=== PATIENT | female | born 1990 | race Caucasian/White ===

== ENCOUNTER 2025-04-29 00:49 | Inpatient (IN) | payer BC, SELFPAY ==
[2025-04-29] VITALS (157 sets, daily range): BP systolic 88–169; BP diastolic 39–119; PULSE 65–298; RESP 16–18; TEMP 36.6–37; O2SAT 94–100; BMI 36.3
[2025-04-29 01:24] LABS: Hematocrit 31.6 % (37.0-47.0); Hemoglobin 10.3 g/dL (12.0-15.0); Immature Granulocyte Percent A 1.0 % (0-0.5); Lymphocytes Absolute Auto 4.62 K/mm3 (0.9-3.2); Mean Corpuscular HGB Conc 32.6 g/dl (32-36); Mean Corpuscular Hemoglobin 27.2 pg (26-34); Mean Corpuscular Volume 83.6 fl (80-100); Nucleated Red Blood Cells Absolute Auto 0.000 K/mm3 (0.0-0.012); Nucleated Red Blood Cells Perc 0.0 % (0.0-0.2); Platelet Count Result 249 k/mm3 (150-375); Red Blood Count 3.78 M/mm3 (4.2-5.4); White Blood Count 15.6 K/mm3 (4.5-10.0)
[2025-04-29] MEDS: LACTATED RINGERS 1,000 ML 125 ML IV CONT ×3 (01:24→06:49)
[2025-04-29] MEDS: fentaNYL CITRATE INJ (*CRX) 100 MCG/2 ML VIAL 50 MCG IV PUSH (01:43)
[2025-04-29 02:02] LABS: Syphilis IgG/IgM Antibody Non-Reactive (Nonreactive)
--- NOTE | 2025-04-29 02:02 | WPDANESEPP ---
Anes - Eval Pre Procedure Procedure: Labor Epidural Date/Time: 04/29/25 02:02 Surgeon: Ana Preop Diagnosis: Labor Pain Pre Op Diagnosis: contractions, leaking Patient Data Age: 34 Gender: F Height: Weight: Last Vital Signs Pulse Ox 99 04/29/25 01:05 Allergies Allergy/AdvReac Type Severity Reaction Status Date / Time cymbolta Allergy Severe Anaphylaxis Uncoded 04/21/25 15:44 Home Medications ?Medication ?Instructions ?Recorded ?Confirmed ?Type Lomotrigine 04/21/25 History Laboratory Tests 04/29/25 01:12 WBC 15.6 H K/mm3 (4.5-10.0) RBC 3.78 L M/mm3 (4.2-5.4) Hgb 10.3 L g/dL (12.0-15.0) Hct 31.6 L % (37.0-47.0) MCV 83.6 fl (80-100) MCH 27.2 pg (26-34) MCHC 32.6 g/dl (32-36) RDW 14.7 H % (11.5-14.5) Plt Count 249 k/mm3 (150-375) MPV 11.9 H fl (7.4-10.4) Immature Gran % (Auto) 1.0 H % (0-0.5) Neut % (Auto) 62.6 % (45.5-73.1) Lymph % (Auto) 29.7 % (18.3-44.2) Rooks % (Auto) 6.1 % (2.6-8.5) Eos % (Auto) 0.4 % (0-4.4) Baso % (Auto) 0.2 % (0.2-1.2) Lymph # (Auto) 4.62 H K/mm3 (0.9-3.2) Rooks # (Auto) 1.0 H K/mm3 (0.1-0.6) Eos # (Auto) 0.1 K/mm3 (0-0.3) Baso # (Auto) 0.0 K/mm3 (0.0-0.1) Abs Immat Gran (auto) 0.16 H K/mm3 (0.00-0.031) Absolute Neuts (auto) 9.7 H K/mm3 (1.3-6.7) Absolute Nucleated RBC 0.000 K/mm3 (0.0-0.012) Nucleated RBC % 0.0 % (0.0-0.2) Syphilis IgG/IgM Ab Non-reactive (Nonreactive) Blood Type A Positive Antibody Screen Pending Patient hx anesthesia problems: none Family hx anesthesia problems: none Results Review: All pre-operative results and documents have been reviewed as part of the pre-operative evaluation. [facility] Family History Family History (Updated 04/21/25 @ 15:32 by Angeline Ochoa RN) Mother Addisons disease Grandparent Bone cancer Father Malignant neoplasm of prostate Social History Social History Substance use: never Spiritual care concerns: No Exam Day of Procedure 04/29/25 02:02 Patient weight: normal Heart: regular rate and rhythm Lungs: normal air movement Airway: Mallampati scale class II Neurological: alert and oriented
--- NOTE | 2025-04-29 03:25 | LDADM ---
This patient, Cici Pa, was admitted to Labor/Delivery/Recovery 107 on 04/29/25 at 00:49. Plans for labor, pain management and were discussed with patient. Patient/family oriented to hospital policies and general routines including ID bracelet, bed and alarms, visiting hours, pain management, procedures, bathroom and other care routines, personal items, smoking policy, room service/diet and guest tray routines, security routines, and visiting hours. Patient/Family are encouraged to report perceived risks to care and to ask questions if they do not understand what they are told or what they should do. See OBIX for further documentation.
[2025-04-29] MEDS: CALCIUM CARBONATE (TUMS) 500 MG (200 MG ELEMENTAL) (06:43)
--- NOTE | 2025-04-29 06:57 | PM.IMHP2 ---
H&P: HPI History of Present Illness Date/Time: 04/29/25 06:57 Chief Complaint: Labor at term Narrative: This is a 34-year-old 1 para 0 whose last menstrual period is unknown but EDC is 05/23/2025 confirmed by 10 week ultrasound presents at 37 weeks gestation with spontaneous rupture membranes prior to admission she does take lamotrigine has otherwise been uncomplicated she passed her diabetic test and was negative for group B strep Review of Systems Review of Systems: All systems reviewed & are unremarkable except as noted in HPI and below PMFSH Family History Family History Mother Addisons disease Grandparent Bone cancer Father Malignant neoplasm of prostate Social History Social History Smoking status: Former smoker Tobacco type: cigarettes Second hand tobacco smoke exposure: No Smoking end date: 11/03/23 Substance use: never Lack of Transportation: No Lack of Food: Never True Current Housing: I Have Housing Concerned About Future Housing: No Difficulty Paying Gas/Electric Bills: No Difficulty Paying for Meds: No Currently Unemployed: No Education: Trade/Vocational Certificate Difficulty w/ Childcare or Family Care: No Spiritual care concerns: No Meds Home Medications and Allergies Home Medications ?Medication ?Instructions ?Recorded ?Confirmed ?Type Lomotrigine 04/21/25 History Allergies Allergy/AdvReac Type Severity Reaction Status Date / Time cymbolta Allergy Severe Anaphylaxis Uncoded 04/21/25 15:44 Vital Signs Vital Signs - 24 hr 04/29/25 01:05 04/29/25 02:03 04/29/25 02:08 Temperature Pulse Rate Blood Pressure Pulse Oximetry 99 99 100 Oxygen Delivery 04/29/25 02:09 04/29/25 02:12 04/29/25 02:13 Temperature Pulse Rate 72 81 Blood Pressure 140/81 166/119 H Pulse Oximetry 100 Oxygen Delivery 04/29/25 02:18 04/29/25 02:23 04/29/25 02:28 Temperature Pulse Rate Blood Pressure Pulse Oximetry 99 100 100 Oxygen Delivery 04/29/25 02:29 04/29/25 02:31 04/29/25 02:33 Temperature Pulse Rate 69 75 91 Blood Pressure 147/83 H 164/82 H 140/69 Pulse Oximetry 99 Oxygen Delivery 04/29/25 02:35 04/29/25 02:36 04/29/25 02:38 Temperature Pulse Rate 93 90 Blood Pressure 154/70 H 144/69 H Pulse Oximetry 100 Oxygen Delivery 04/29/25 02:39 04/29/25 02:41 04/29/25 02:43 Temperature Pulse Rate 89 91 Blood Pressure 141/63 H 122/81 Pulse Oximetry 99 Oxygen Delivery 04/29/25 02:44 04/29/25 02:46 04/29/25 02:48 Temperature Pulse Rate 153 H 74 Blood Pressure 133/68 127/58 L Pulse Oximetry 99 Oxygen Delivery 04/29/25 02:49 04/29/25 02:51 04/29/25 02:53 Temperature Pulse Rate 88 70 Blood Pressure 111/39 L 126/56 L Pulse Oximetry 95 Oxygen Delivery 04/29/25 02:54 04/29/25 02:57 04/29/25 02:58 Temperature Pulse Rate 298 H 74 Blood Pressure 115/45 L 126/50 L Pulse Oximetry 96 Oxygen Delivery 04/29/25 02:59 04/29/25 03:01 04/29/25 03:03 Temperature Pulse Rate 73 74 Blood Pressure 107/46 L 119/56 L Pulse Oximetry 99 Oxygen Delivery 04/29/25 03:04 04/29/25 03:06 04/29/25 03:09 Temperature Pulse Rate 73 85 78 Blood Pressure 119/55 L 110/42 L 117/57 L Pulse Oximetry Oxygen Delivery 04/29/25 03:11 04/29/25 03:14 04/29/25 03:16 Temperature Pulse Rate 87 85 88 Blood Pressure 111/76 103/52 L 88/47 L Pulse Oximetry Oxygen Delivery 04/29/25 03:20 04/29/25 03:21 04/29/25 03:24 Temperature Pulse Rate 82 76 79 Blood Pressure 103/40 L 110/46 L 104/53 L Pulse Oximetry Oxygen Delivery 04/29/25 03:25 04/29/25 03:26 04/29/25 03:29 Temperature Pulse Rate 82 91 Blood Pressure 101/49 L 108/48 L Pulse Oximetry Oxygen Delivery Room Air 04/29/25 03:31 04/29/25 03:46 04/29/25 03:51 Temperature Pulse Rate 84 86 Blood Pressure 102/59 L 116/56 L Pulse Oximetry 100 100 Oxygen Delivery 04/29/25 03:56 04/29/25 04:00 04/29/25 04:01 Temperature 97.9 F Pulse Rate Blood Pressure Pulse Oximetry 99 100 Oxygen Delivery 04/29/25 04:02 04/29/25 04:06 04/29/25 04:11 Temperature Pulse Rate 88 Blood Pressure 101/66 Pulse Oximetry 100 99 Oxygen Delivery 04/29/25 04:16 04/29/25 04:21 04/29/25 04:26 Temperature Pulse Rate 84 Blood Pressure 123/63 Pulse Oximetry 99 99 99 Oxygen Delivery 04/29/25 04:31 04/29/25 04:46 04/29/25 05:01 Temperature Pulse Rate 89 87 86 Blood Pressure 132/68 136/71 149/77 H Pulse Oximetry 99 Oxygen Delivery 04/29/25 05:16 04/29/25 05:31 04/29/25 05:46 Temperature Pulse Rate 84 84 90 Blood Pressure 131/60 140/63 146/73 H Pulse Oximetry Oxygen Delivery 04/29/25 06:01 04/29/25 06:12 04/29/25 06:13 Temperature 98.3 F Pulse Rate 96 Blood Pressure 135/73 Pulse Oximetry 99 Oxygen Delivery 04/29/25 06:16 04/29/25 06:18 04/29/25 06:23 Temperature Pulse Rate 96 Blood Pressure 136/78 Pulse Oximetry 100 100 Oxygen Delivery 04/29/25 06:28 04/29/25 06:31 04/29/25 06:33 Temperature Pulse Rate 90 Blood Pressure 135/63 Pulse Oximetry 99 99 Oxygen Delivery 04/29/25 06:38 04/29/25 06:43 04/29/25 06:48 Temperature Pulse Rate Blood Pressure Pulse Oximetry 99 99 99 Oxygen Delivery 04/29/25 06:53 Temperature Pulse Rate Blood Pressure Pulse Oximetry 99 Oxygen Delivery Exam Const: General: cooperative, healthy appearing and comfortable Nutritional Appearance: average body habitus Orientation/consciousness: oriented to person, oriented to place and oriented to time HENMT: Head: normal to inspection Resp: Effort & Inspection: normal respiratory effort Cardio: Rate: regular rate Rhythm: regular rhythm Heart sounds: S1 normal heart sound present and S2 normal heart sound present GI: Inspection: normal to inspection (Gravid soft uterus) : External Female Exam: normal external appearance Speculum Exam - Vagina: normal appearance of the vagina Speculum Exam - Cervix: normal appearance of the cervix (Cervix complete. FHTs reassuring epidural and) Results Labs Labs: Short CBC 04/29/25 Range/Units 01:12 WBC 15.6 H (4.5-10.0) K/mm3 Hgb 10.3 L (12.0-15.0) g/dL Hct 31.6 L (37.0-47.0) % Plt Count 249 (150-375) k/mm3 Assessment and Plan Assessment and plan (1) Term : Code(s): Z34.90 - Encounter for supervision of normal , unspecified, unspecified trimester Status: Acute Plan Spontaneous vaginal delivery is expected
--- NOTE | 2025-04-29 09:50 | PM.OBPRVD ---
OB - Vaginal Delivery Note Procedure Delivery date: 04/29/25 Induction method: None Delivery monitor: External FHT and External Uterine Route of delivery: Episiotomy description: None Laceration Description: None Specimen: No Quantitative Blood Loss (ml): 63 Anesthesia type: Epidural Disposition: PACU Complications: No immediate complications Narrative: Patient was admitted in active labor 04/29/2025 early a.m. she had spontaneous rupture 36 and half weeks gestation to [facility] 1st stage of labor and epidural anesthesia placement should complete she pushed delivered head spontaneously in the HUGO position. Anterior posterior shoulder delivered spontaneously. Twenty of baby delivered over an intact perineum placenta delivered intact spontaneously 20 of Pitocin placed IV to help firm the uterus no tears or lacerations were noted there were no complications Baby Date of : 04/29/25 Time of : 09:17 Gestational Age by Date: 36 gender: Male presentation: vertex position: Right Occiput Anterior Placenta delivery description: Spontaneous Cord Vessel Description: 3 Vessels
--- NOTE | 2025-04-29 09:53 | PM.DS ---
DS: Admitting Diagnosis Discharge Date 05/01/25 <Meena Rodriguez MD - Last Filed: 04/30/25 09:50> Admitting Diagnosis SROM in labor at 36 4/7 wks <Meena Rodriguez MD - Last Filed: 04/30/25 09:50> DS: Discharge Diagnosis Discharge Diagnosis (1) (normal spontaneous vaginal delivery): Code(s): O80 - Encounter for full-term uncomplicated delivery <Js Kay MD - Last Filed: 04/29/25 09:55> Status: Acute <Js Kay MD - Last Filed: 04/29/25 09:55> DS: Summary Hospital Course Reason for hospitalization: Patient was admitted on 04/09/2010/22/2024 in the early a.m. she underwent spontaneous vaginal delivery then a.m.. <Js Kay MD - Last Filed: 04/29/25 09:55> Hospital Course: Patient's hospital course unremarkable. She remained afebrile. She was up, voiding without difficulty, eating regular diet, ambulating and generally without complaints. <Js Kay MD - Last Filed: 04/29/25 09:55> Patient's hospital course unremarkable. She remained afebrile. She was up, voiding without difficulty, eating regular diet, ambulating and generally without complaints. Patient per notes with pp bleeding requiring methergine. Hb pp was 7.3 and patient was not symptomatic. <Meena Rodriguez MD - Last Filed: 04/30/25 09:50> Status at Discharge Functional status at discharge: independent ambulation <Meena Rodriguez MD - Last Filed: 04/30/25 09:50> Overall status at discharge: patient is progressing back to baseline <Meena Rodriguez MD - Last Filed: 04/30/25 09:50> Time Spent with Patient Time attestation: Total time spent providing and/or coordinating discharge services: <Js Kay MD - Last Filed: 04/29/25 09:55> Exam Const: General: cooperative, healthy appearing and comfortable <Js Kay MD - Last Filed: 04/29/25 09:55> Nutritional Appearance: average body habitus <Js Kay MD - Last Filed: 04/29/25 09:55> Orientation/consciousness: oriented to person, oriented to place and oriented to time <Js Kay MD - Last Filed: 04/29/25 09:55> HENMT: Head: normal to inspection <Js Kay MD - Last Filed: 04/29/25 09:55> Resp: Effort & Inspection: normal respiratory effort <Js Kay MD - Last Filed: 04/29/25 09:55> Cardio: Rate: regular rate <Js Kay MD - Last Filed: 04/29/25 09:55> Rhythm: regular rhythm <Js Kay MD - Last Filed: 04/29/25 09:55> Heart sounds: S1 normal heart sound present and S2 normal heart sound present <Js Kay MD - Last Filed: 04/29/25 09:55> GI: Inspection: normal to inspection (Gravid soft uterus) <Js Kay MD - Last Filed: 04/29/25 09:55> : External Female Exam: normal external appearance <Js Kay MD - Last Filed: 04/29/25 09:55> Speculum Exam - Vagina: normal appearance of the vagina <Js Kay MD - Last Filed: 04/29/25 09:55> Speculum Exam - Cervix: normal appearance of the cervix (Cervix complete. FHTs reassuring epidural and) <Js Kay MD - Last Filed: 04/29/25 09:55> DS: Data Data Completed and Pending Labs on day of discharge: Labs from last 24 hours 04/29/25 01:12 WBC 15.6 H RBC 3.78 L Hgb 10.3 L Hct 31.6 L MCV 83.6 MCH 27.2 MCHC 32.6 RDW 14.7 H Plt Count 249 MPV 11.9 H Immature Gran % (Auto) 1.0 H Neut % (Auto) 62.6 Lymph % (Auto) 29.7 [place]verse % (Auto) 6.1 Eos % (Auto) 0.4 Baso % (Auto) 0.2 Lymph # (Auto) 4.62 H [place]verse # (Auto) 1.0 H Eos # (Auto) 0.1 Baso # (Auto) 0.0 Abs Immat Gran (auto) 0.16 H Absolute Neuts (auto) 9.7 H Absolute Nucleated RBC 0.000 Nucleated RBC % 0.0 Syphilis IgG/IgM Ab Non-reactive Blood Type A Positive Antibody Screen Negative <Js Kay MD - Last Filed: 04/29/25 09:55> Discharge Plan Discharge Attending physician on discharge: Js Melissa <Js Kay MD - Last Filed: 04/29/25 09:55> Js Melissa <Meena Rodriguez MD - Last Filed: 04/30/25 09:50> Discharging Clinician: Meena Rodriguez <Js Kay MD - Last Filed: 04/29/25 09:55> Meena Rodriguez <Meena Rodriguez MD - Last Filed: 04/30/25 09:50> Patient Disposition: Home <Js Kay MD - Last Filed: 04/29/25 09:55> Activity: may shower, no straining and pelvic rest <Js Kay MD - Last Filed: 04/29/25 09:55> may shower, no straining and pelvic rest <Meena Rodriguez MD - Last Filed: 04/30/25 09:50> Diet: heart healthy <Js Kay MD - Last Filed: 04/29/25 09:55> heart healthy <Meena Rodriguez MD - Last Filed: 04/30/25 09:50> Wound Care Instructions: follow printed instructions <Js Kay MD - Last Filed: 04/29/25 09:55> follow printed instructions <Meena Rodriguez MD - Last Filed: 04/30/25 09:50> Patient Instructions: Antibiotic Form <Js Kay MD - Last Filed: 04/29/25 09:55> Patient Language: Northern Irish <Js Kay MD - Last Filed: 04/29/25 09:55> Stand Alone Forms: General Discharge Information <Js Kay MD - Last Filed: 04/29/25 09:55> Follow-up/Referrals: Js Melissa MD [Physician, [employer]] <Js Kay MD - Last Filed: 04/29/25 09:55> Discharge Medications: New polysaccharide iron complex 150 mg iron Capsule 150 mg PO BIDWM Qty: 60 2RF Continued Lomotrigine 100 mg <Js Kay MD - Last Filed: 04/29/25 09:55> Date of admission: 04/29/25 00:49 <Js Kay MD - Last Filed: 04/29/25 09:55> Primary Care Provider: MariuszRigo <Js Kay MD - Last Filed: 04/29/25 09:55> Admitting Provider: Js Melissa <Js Kay MD - Last Filed: 04/29/25 09:55> Attending physician on admission: Js Melissa <Js Kay MD - Last Filed: 04/29/25 09:55> Condition: Stable <Js Kay MD - Last Filed: 04/29/25 09:55>
[2025-04-29] MEDS: OXYTOCIN 30 UNITS/NS 500 ML 30 UNITS/500 ML BAG 125 UNITS IV CONT (10:06)
[2025-04-29] MEDS: IBUPROFEN 600 MG TABLET PO ×2 (10:20→23:34)
--- NOTE | 2025-04-29 10:35 | P.PNOB_ITS ---
OB - PN: Subj Subjective Date/time seen: 04/29/25 10:35 Interval history: Called to see patient she had a big gush of 150cc of blood on exam shows the uterus sounded be firm some clots removed from the endocervix. And she has responded to Methergine will watch closely the patient has remained hemodynamically stable throughout and the uterus is firm OB - PN: Obj Data Labs 04/29/25 01:12 Labs: Laboratory Results - last 24 hr 04/29/25 01:12 WBC 15.6 H RBC 3.78 L Hgb 10.3 L Hct 31.6 L MCV 83.6 MCH 27.2 MCHC 32.6 RDW 14.7 H Plt Count 249 MPV 11.9 H Immature Gran % (Auto) 1.0 H Neut % (Auto) 62.6 Lymph % (Auto) 29.7 Randall % (Auto) 6.1 Eos % (Auto) 0.4 Baso % (Auto) 0.2 Lymph # (Auto) 4.62 H Randall # (Auto) 1.0 H Eos # (Auto) 0.1 Baso # (Auto) 0.0 Abs Immat Gran (auto) 0.16 H Absolute Neuts (auto) 9.7 H Absolute Nucleated RBC 0.000 Nucleated RBC % 0.0 Syphilis IgG/IgM Ab Non-reactive Blood Type A Positive Antibody Screen Negative OB - PN A/P Time Spent With Patient Time: Total time spent is greater than 50% in coordination of care (as documented) at patient's floor/unit and/or counseling patient:
--- NOTE | 2025-04-29 13:03 | OBPPTRN ---
Patient transferred to post room # 285 via WC. Support person present. Oriented to unit, room, information board, rooming in, admission packet and security measures. Patient verbalizes understanding.
[2025-04-29] MEDS: ACETAMINOPHEN 325 MG TABLET 650 MG PO (16:00)
--- NOTE | 2025-04-29 16:44 | PC.NURSE ---
[id number] Consulted with patient to assess needs related to . Discussed with mother her successes, concerns and any questions she has. Per mother she had nipple piercing in both breasts and her left nipple had an infection over a year ago that was treated bus he has some scarring on that nipple. This was an IVF and she had a larger blood loss with delivery so we did discuss that those things can affect her milk supply and the is early at 36 weeks gestation. Recommended mother start the 15-15-15 feeding plan since infant is not latching and feeding from the breast at this time, parents were on board with that feeding plan and requested Enfamil to use for the formula, CLC will get mother set up with a hospital breast pump to use after attempts and/or feedings at the breast. We reviewed working with the infant, supporting breast, protecting her nipples with an optimal deep latch, good positioning, and good hand washing. Encouraged understanding the benefits of skin to skin, responding to feeding cues, frequencies of feeding 8-12 times in 24 hours (approximately 2-3 hours), duration of feedings, milk production, intake/output feeding sheet and signs of adequate intake encouraging swallowing at the breast. Reviewed positioning and alignment, supporting breast, off-centered (asymmetrical latch) and leading with the chin with big, open, wide gape. attempted to latched to the [left] breast in [cross cradle] position. Education given to the mother of how to visualize the suckling (with good rocking jaw motion) swallows (dropping of the lower jaw) and how to listen for drinking at the breast (the ka sound). The was [not able] to latch, was sleepy at the breast. Nipple care reviewed with optimal latch, good positioning and using clean hands when touching her breast. Mother hand expressed from both breasts several times and was unable to get any drops of colostrum. Breast pump was then provided and instructions given on cleaning, care, usage, that there should be no pain, pumping schedule for milk production, collection, and storage of human milk. Patient was assessed for correct placement, flange size, to pump for comfort and nipple stretching/stimulation for adequate milk production every 3 hours (8 times in 24 hours) 1-2 times at night. Parents are encouraged to record the pumping schedule on the feeding sheet.?Mother then attempted to bottle feed the infant but he was not interested, CLC RN was able to bottle feed the with chin support 10mls that took 20 minutes to feed. Mother voiced understanding of the education shared along with mom/baby guide and the pump measurement, flange fit handout for additional resource information. Resources used to facilitate learning were used from the [visual handouts/ tool/mom and baby guide]. Mother voiced understanding of the education shared, to call for assistance if the infant does not latch or if there is discomfort with . Reported to the Primary RN.
[2025-04-30 04:56] LABS: Hematocrit 23.0 % (37.0-47.0); Hemoglobin 7.3 g/dL (12.0-15.0)
[2025-04-30 07:51] VITALS: BP 115/62; PULSE 90; RESP 18; TEMP 36.7; O2SAT 98
[2025-04-30] MEDS: BENZOCAINE 20% AER SPR (*SP) 56 GM CAN 1 SPRAY TOPICAL (08:00)
[2025-04-30] MEDS: WITCH HAZEL 40 PADS 1 PAD TOPICAL (08:00)
[2025-04-30] MEDS: DIBUCAINE 1% OINTMENT 30 GM TUBE 1 APPLIC TOPICAL (08:00)
[2025-04-30] MEDS: ACETAMINOPHEN 325 MG TABLET 650 MG PO ×3 (08:15→23:45)
[2025-04-30] MEDS: IBUPROFEN 600 MG TABLET PO ×3 (08:18→23:45)
[2025-04-30] MEDS: MULTIVIT/MIN/PREN/FOL AC/IRON TABLET 1 TAB PO (09:09)
[2025-04-30] MEDS: DOCUSATE SODIUM 100 MG CAPSULE PO (09:09)
--- NOTE | 2025-04-30 09:46 | P.PNOB_ITS ---
OB - PN: Subj Subjective Date/time seen: 04/30/25 09:46 Patient comments: no complaints and pain well controlled baby status: doing well OB - PN: Obj Data Labs 04/30/25 03:46 Labs: Laboratory Results - last 24 hr 04/30/25 03:46 Hgb 7.3 L D Hct 23.0 L OB - PN A/P Assessment and Plan (1) Anemia: Code(s): D64.9 - Anemia, unspecified Status: Acute Assessment and Plan: Hb 7.3 this am. Bleeding normal for . Plan iron for next 3 months. Plan day: 1 Plan: routine care, discharge home (tomorrow am) and follow up 6 weeks Time Spent With Patient Time: Total time spent is greater than 50% in coordination of care (as documented) at patient's floor/unit and/or counseling patient: Exam 2 : Bimanual exam- vagina & uterus: other (Uterus firm, nt @U)
[2025-04-30 16:28] VITALS: BP 140/81; PULSE 94; RESP 16; TEMP 37; O2SAT 100
--- NOTE | 2025-04-30 17:02 | WPDANLDPN2 ---
Anes-Prog Note L&D Date/Time: 04/30/25 17:02 Comfortable throughout: labor and delivery Neuraxial method: epidural Epidural/Spinal procedure site: clean & non-tender Neuro status: Neuro function grossly intact. Cardiovascular status: normal Respiratory status: normal Airway patency: baseline Mental status: baseline Post-Op hydration status: normal Vital Signs: Last Vital Signs Temp 98.6 F 04/30/25 16:28 Pulse 94 04/30/25 16:28 Resp 16 04/30/25 16:28 BP 140/81 04/30/25 16:28 Pulse Ox 100 04/30/25 16:28 O2 Del Method Room Air 04/29/25 19:00 Pain score (VAS): 0 I/O: Intake & Output 04/30/25 04/30/25 04/30/25 07:59 15:59 23:59 Intake Total 200 Balance 200 Post-procedural complaints: none Patient feedback: Patient satisfied with anesthetic care.
[2025-04-30 19:20] VITALS: BP 142/79; PULSE 91; RESP 18; TEMP 36.9; O2SAT 98
[2025-05-01 07:30] VITALS: BP 134/82; PULSE 81; RESP 14; TEMP 36.7; O2SAT 100
[2025-05-01] MEDS: WITCH HAZEL 40 PADS 1 PAD TOPICAL (08:45)
[2025-05-01] MEDS: BENZOCAINE 20% AER SPR (*SP) 56 GM CAN 1 SPRAY TOPICAL (08:45)
[2025-05-01] MEDS: MULTIVIT/MIN/PREN/FOL AC/IRON TABLET 1 TAB PO (08:46)
[2025-05-01] MEDS: IBUPROFEN 600 MG TABLET PO (08:46)
[2025-05-01] MEDS: DOCUSATE SODIUM 100 MG CAPSULE PO (08:46)
[2025-05-01] MEDS: ACETAMINOPHEN 325 MG TABLET 650 MG PO (08:57)
--- NOTE | 2025-05-01 11:46 | PC.NURSE ---
1145-Pt discharged to home. transferred to [facility] for higher level of care. This RN called Dr. Rodriguez to inform. States pt needs to come back to [facility] tomorrow for bp check. Appointment made and pt agrees with plan.
[2025-05-02 08:53] VITALS: BP 141/78; PULSE 97; RESP 18; TEMP 36.7; O2SAT 100
== END 2025-05-01 11:38 | disposition home or self-care (01) | DRG 807 ==
LOC: ANHLDR 05-03 09:44 → ANHOB2 05-03 09:44
PROVIDERS: Obstetrics & Gynecology; Admitting Provider Obstetrics & Gynecology Gynecology; PCP Physician Assistant; Visit Provider Obstetrics & Gynecology Gynecology
DX: O60.14X0 Preterm labor third trimester with preterm delivery third trimester, not applicable or unspecified (principal); Z37.0 Single live birth; Z3A.36 36 weeks gestation of pregnancy
CPT/HCPCS: 36415; 85014; 85018; 85025; 86593; 86850; 86900; 86901; A9270; J2590; J2795; J3010; J7120